=== PATIENT | female | born 1985 ===

== ENCOUNTER 2021-07-08 16:19 | Emergency (ER) | payer SELFPAY ==
[~2021-07-08] VITALS: Ht 165.1 cm; Wt 97.5 kg
--- NOTE | 2021-07-08 16:20 | NUR ---
Dr Najera at the bedside for MSE.
[2021-07-08] MEDS: HYDROCODONE/APAP 5-325MG TABLET PO ONE (16:41)
[2021-07-08] MEDS: ACETAMINOPHEN 325 MG TABLET PO ONE (16:42)
[2021-07-08] MEDS: IBUPROFEN 400 MG TABLET PO ONE (16:42)
--- NOTE | 2021-07-08 16:45 | NUR ---
Pt out of Er for Ct/xray.
[2021-07-08] MEDS ORDERED: IBUPROFEN 400 MG TABLET ONE (16:47)
[2021-07-08] MEDS ORDERED: ACETAMINOPHEN 325 MG TABLET ONE (16:47)
--- NOTE | 2021-07-08 17:22 | NUR ---
Pt back to room, resting in bed, states decreased pain.
--- NOTE | 2021-07-08 19:14 | NUR ---
pt a/o sitting at bedside, per family and pt they would like to go home. informed Dr. Kat.
[2021-07-08] MEDS ORDERED: OXYC-128 PO (19:18)
--- NOTE | 2021-07-08 19:35 | NUR ---
Patient discharged to home in stable condition. Written and verbal after care instructions given. Patient verbalizes understanding of instructions. Stressed follow up or return to ER for worsening s/s. pt ambulatory denies pain.
[2021-07-08 19:36] VITALS: BP 125/80
== END 2021-07-08 19:36 | disposition home or self-care (01) ==
LOC: ER 16:26
DX: Z04.3 Encounter for examination and observation following other accident (principal); M25.50 Pain in unspecified joint; M79.10 Myalgia, unspecified site; Z91.81 History of falling
CPT/HCPCS: 70450; 71045; 73030; 73080; 73110; 73502; 73610; A4663